=== PATIENT | female | born 1990 | race Caucasian/White ===

== ENCOUNTER 2022-01-28 11:52 | Emergency (ER) | payer BC ==
[2022-01-28] MEDS ORDERED: Sodium Chloride 0.9% 1,000 ML IV ONE (12:40)
[2022-01-28] MEDS ORDERED: Scopolamine 1.5 MG Transdermal Patch TRDERM STA (12:44)
[2022-01-28] MEDS ORDERED: Ketorolac 30 MG/ML SDV IVPUSH ONE (12:45)
[2022-01-28 13:36] LABS: CARBON DIOXIDE,CO2 25.5 mmol/L (21.0-32.0); POTASSIUM,K 3.9 mmol/L (3.5-5.1)
== END 2022-01-28 14:50 | disposition home or self-care (01) ==
LOC: MW.ED 11:52
DX: R42 Dizziness and giddiness (principal); Z79.899 Other long term (current) drug therapy; Z20.822 Contact with and (suspected) exposure to COVID-19
CPT/HCPCS: 36415; 80053; 81003; 81025; 84443; 84484; 85025; 87635; 93005; 96361; 96374; 99283; A9270; J1885; J7030; 93010; U0002